=== PATIENT | female | born 1935 | race Caucasian/White ===

== ENCOUNTER 2019-02-05 12:57 | Inpatient (IN) ==
[2019-02-05 14:17] LABS: Basophils % 0.6 %; Eosinophils # 0.1 K/mcL (0.0-0.6); Eosinophils % 1.1 %; Hematocrit 35.6 % (35.3-44.9); Hemoglobin 11.9 g/dL (11.5-15.4); Immature Granulocytes % 0.2 % (0-4); Lymphocytes # 0.7 K/mcL (0.6-4.6); Lymphocytes % 13.4 %; Mean Corpuscular HGB Conc 33.4 g/dL (31.6-35.5); Mean Corpuscular Hemoglobin 29.8 pg (28.0-33.3); Mean Corpuscular Volume 89.2 fL (83.0-100.0); Mean Platelet Volume 9.8 fL (9.4-12.4); Monocytes # 0.5 K/mcL (0.0-1.3); Monocytes % 8.6 %; Neutrophils # 4.1 K/mcL (1.6-8.9); Platelet Count 176 K/mcL (140-400); Red Blood Count 3.99 M/mcL (3.82-4.97); Red Cell Distribution Width 13.5 % (11.5-14.5); Segmented Neutrophils % 76.1 %; White Blood Count 5.4 K/mcL (4.3-11.1)
[2019-02-05 14:31] LABS: Bilirubin,Urine Negative (Negative); Blood,Urine Negative (Negative); Clarity,Urine Clear (Clear); Color,Urine Yellow (Yellow); Glucose,Urine (UA) Normal (Normal); Ketones,Urine Negative (Negative); Leukocyte Esterase,Urine Negative (Negative); Nitrite,Urine Negative (Negative); PH,Urine 7.5 pH Units (5.0-8.0); Protein,Urine Negative (Neg-Trace); Specific Gravity,Urine 1.016 (1.010-1.025); Urobilinogen,Urine Normal (Normal)
[2019-02-05 14:39] LABS: BUN/Creatinine Ratio 19 (6-26); Blood Urea Nitrogen 15 mg/dL (8-23); Calcium 9.1 mg/dL (8.6-10.3); Carbon Dioxide 30 mEq/L (23-29); Chloride 102 mEq/L (98-107); Glucose 104 mg/dL (70-105); Osmolality,Calculated 287 (280-300); Potassium 4.1 mEq/L (3.5-5.1); Sodium 138 mEq/L (136-145); eGFR For African Americans > 60 (> 60); eGFR For Non-African Americans > 60 (> 60)
[2019-02-05] MEDS ORDERED: Naloxone 0.4 MG/ML INJ IVP PRN (17:33)
[2019-02-05] MEDS ORDERED: cloNIDine HCl 0.1 MG TABLET ONE (18:51)
[2019-02-05] MEDS: 0.9 % Sodium Chloride 1,000 ML IVC SCH (18:55)
[2019-02-05] MEDS: cloNIDine HCl 0.1 MG TABLET PO SCH (18:59)
[2019-02-05] MEDS ORDERED: *HR* OxyCODONE/APAP 5/325 TABLET PO ONE (21:30)
[2019-02-05] MEDS: *HR* Heparin 5,000 UNIT/ML VIAL SQ SCH (21:53)
[2019-02-06] MEDS: Acetaminophen 325 MG TABLET PO PRN (04:56)
[2019-02-06] MEDS: *HR* Heparin 5,000 UNIT/ML VIAL SQ SCH ×3 (04:57→20:05)
[2019-02-06 07:31] LABS: Basophils % 0.6 %; Eosinophils # 0.1 K/mcL (0.0-0.6); Eosinophils % 1.1 %; Hematocrit 31.7 % (35.3-44.9); Hemoglobin 10.6 g/dL (11.5-15.4); Immature Granulocytes % 0.2 % (0-4); Lymphocytes # 0.6 K/mcL (0.6-4.6); Lymphocytes % 13.2 %; Mean Corpuscular HGB Conc 33.4 g/dL (31.6-35.5); Mean Corpuscular Hemoglobin 30.2 pg (28.0-33.3); Mean Corpuscular Volume 90.3 fL (83.0-100.0); Mean Platelet Volume 10.5 fL (9.4-12.4); Monocytes # 0.5 K/mcL (0.0-1.3); Monocytes % 10.9 %; Neutrophils # 3.5 K/mcL (1.6-8.9); Platelet Count 170 K/mcL (140-400); Red Blood Count 3.51 M/mcL (3.82-4.97); Red Cell Distribution Width 13.7 % (11.5-14.5); White Blood Count 4.7 K/mcL (4.3-11.1)
[2019-02-06 07:57] LABS: BUN/Creatinine Ratio 19 (6-26); Blood Urea Nitrogen 15 mg/dL (8-23); Calcium 8.6 mg/dL (8.6-10.3); Carbon Dioxide 27 mEq/L (23-29); Chloride 102 mEq/L (98-107); Glucose 113 mg/dL (70-105); Osmolality,Calculated 288 (280-300); Sodium 138 mEq/L (136-145); eGFR For African Americans > 60 (> 60); eGFR For Non-African Americans > 60 (> 60)
[2019-02-06] MEDS: cloNIDine HCl 0.1 MG TABLET PO SCH ×2 (08:56→20:05)
[2019-02-06] MEDS: Aspirin Enteric Coated 81 MG Tablet PO SCH (08:57)
[2019-02-06] MEDS: Cyanocobalamin (B-12) 1,000 MCG TABLET PO SCH (08:57)
[2019-02-06] MEDS: Ascorbic Acid 500 MG TABLET PO SCH (08:57)
[2019-02-06] MEDS ORDERED: NON-FORMULARY MEDICATION 1 EACH EACH (Omega-3/Dha/Epa/Fish Oil [Omega 3 500 Softgel] 1 EAC PO SCH (09:00)
[2019-02-06] MEDS ORDERED: D MANNOSE 500 MG PO SCH (09:00)
[2019-02-06] MEDS: 0.9 % Sodium Chloride 1,000 ML IVC SCH (11:25)
[2019-02-06] MEDS: *HR* LORazepam 0.5 MG TABLET PO PRN (22:14)
[2019-02-07 05:22] LABS: Basophils % 0.4 %; Eosinophils % 0.8 %; Hematocrit 32.7 % (35.3-44.9); Hemoglobin 10.8 g/dL (11.5-15.4); Immature Granulocytes % 0.4 % (0-4); Lymphocytes # 0.6 K/mcL (0.6-4.6); Lymphocytes % 11.4 %; Mean Corpuscular Hemoglobin 30.1 pg (28.0-33.3); Mean Corpuscular Volume 91.1 fL (83.0-100.0); Mean Platelet Volume 10.4 fL (9.4-12.4); Monocytes # 0.5 K/mcL (0.0-1.3); Monocytes % 10.6 %; Neutrophils # 3.9 K/mcL (1.6-8.9); Platelet Count 185 K/mcL (140-400); Red Blood Count 3.59 M/mcL (3.82-4.97); Red Cell Distribution Width 13.5 % (11.5-14.5); Segmented Neutrophils % 76.4 %; White Blood Count 5.1 K/mcL (4.3-11.1)
[2019-02-07 05:34] LABS: BUN/Creatinine Ratio 18 (6-26); Blood Urea Nitrogen 15 mg/dL (8-23); Calcium 8.6 mg/dL (8.6-10.3); Carbon Dioxide 25 mEq/L (23-29); Chloride 104 mEq/L (98-107); Glucose 134 mg/dL (70-105); Osmolality,Calculated 285 (280-300); Potassium 3.8 mEq/L (3.5-5.1); Sodium 136 mEq/L (136-145); eGFR For African Americans > 60 (> 60); eGFR For Non-African Americans > 60 (> 60)
[2019-02-07] MEDS: *HR* Heparin 5,000 UNIT/ML VIAL SQ SCH ×3 (06:21→19:48)
[2019-02-07] MEDS: cloNIDine HCl 0.1 MG TABLET PO SCH (09:30)
[2019-02-07] MEDS: Cyanocobalamin (B-12) 1,000 MCG TABLET PO SCH (09:30)
[2019-02-07] MEDS: Aspirin Enteric Coated 81 MG Tablet PO SCH (09:30)
[2019-02-07] MEDS: Ascorbic Acid 500 MG TABLET PO SCH (09:30)
[2019-02-07] MEDS: *HR* LORazepam 0.5 MG TABLET PO PRN (09:34)
[2019-02-07 11:22] LABS: Adenovirus Not Detected (Not Detect); Bordetella Pertussis Not Detected (Not Detect); Chlamydophila pneumoniae Not Detected (Not Detect); Coronavirus 229E Not Detected (Not Detect); Coronavirus HKU1 Not Detected (Not Detect); Coronavirus NL63 Not Detected (Not Detect); Coronavirus OC43 Not Detected (Not Detect); Human Metapneumovirus Not Detected (Not Detect); Human Rhinovirus/Enterovirus Not Detected (Not Detect); Influenza A Subtype 2009 H1 Not Detected (Not Detect); Influenza A Untypeable Not Detected (Not Detect); Influenza B Not Detected (Not Detect); Mycoplasma pneumoniae Not Detected (Not Detect); Parainfluenza Virus 1 Not Detected (Not Detect); Parainfluenza Virus 2 Not Detected (Not Detect); Parainfluenza Virus 3 Not Detected (Not Detect); Parainfluenza Virus 4 Not Detected (Not Detect); Respiratory Syncytial Virus Not Detected (Not Detect)
[2019-02-07] MEDS ORDERED: Ibuprofen 400 MG TABLET PO SCH (11:54)
[2019-02-07] MEDS: Ibuprofen 400 MG TABLET PO SCH (15:44)
[2019-02-07] MEDS: Ondansetron 4 MG/2 ML VIAL IVP PRN (16:29)
[2019-02-08] MEDS: Ibuprofen 400 MG TABLET PO SCH ×2 (00:20→00:27)
[2019-02-08 04:33] LABS: Basophils % 0.4 %; Eosinophils # 0.1 K/mcL (0.0-0.6); Eosinophils % 1.5 %; Hematocrit 32.5 % (35.3-44.9); Hemoglobin 10.4 g/dL (11.5-15.4); Immature Granulocytes % 0.4 % (0-4); Lymphocytes # 0.7 K/mcL (0.6-4.6); Lymphocytes % 13.7 %; Mean Corpuscular Volume 93.7 fL (83.0-100.0); Mean Platelet Volume 10.4 fL (9.4-12.4); Monocytes # 0.6 K/mcL (0.0-1.3); Monocytes % 10.6 %; Neutrophils # 3.8 K/mcL (1.6-8.9); Platelet Count 197 K/mcL (140-400); Red Blood Count 3.47 M/mcL (3.82-4.97); Red Cell Distribution Width 13.9 % (11.5-14.5); Segmented Neutrophils % 73.4 %; White Blood Count 5.2 K/mcL (4.3-11.1)
[2019-02-08 04:50] LABS: Potassium 3.9 mEq/L (3.5-5.1); Uric Acid 4.1 mg/dL (2.3-7.6)
[2019-02-08] MEDS: *HR* Heparin 5,000 UNIT/ML VIAL SQ SCH ×3 (05:56→21:26)
[2019-02-08] MEDS ORDERED: predniSONE 20 MG TABLET PO SCH (09:00)
[2019-02-08] MEDS: Aspirin Enteric Coated 81 MG Tablet PO SCH (09:14)
[2019-02-08] MEDS: Cyanocobalamin (B-12) 1,000 MCG TABLET PO SCH (09:14)
[2019-02-08] MEDS: Ascorbic Acid 500 MG TABLET PO SCH (09:14)
[2019-02-08] MEDS: Ondansetron 4 MG/2 ML VIAL IVP PRN (12:18)
[2019-02-08] MEDS ORDERED: MethylPREDNISolone Acet(DEPOT) 80 MG/ML VIAL INTRAART ONE (20:32)
[2019-02-08] MEDS: Acetaminophen 325 MG TABLET PO PRN (22:49)
[2019-02-09] MEDS: *HR* Heparin 5,000 UNIT/ML VIAL SQ SCH ×3 (05:27→21:06)
[2019-02-09] MEDS ORDERED: MethylPREDNISolone Acet(DEPOT) 80 MG/ML VIAL INTRAART ONE (06:00)
[2019-02-09] MEDS ORDERED: Dexamethasone 4 MG/ML VIAL INTRAART ONE (06:00)
[2019-02-09 07:07] LABS: Calcium 8.8 mg/dL (8.6-10.3)
[2019-02-09] MEDS: Aspirin Enteric Coated 81 MG Tablet PO SCH (09:22)
[2019-02-09] MEDS: Ascorbic Acid 500 MG TABLET PO SCH (09:22)
[2019-02-09] MEDS: Cyanocobalamin (B-12) 1,000 MCG TABLET PO SCH (09:23)
[2019-02-09] MEDS ORDERED: Lactulose Oral Soln 20 GM/30 ML UDC PO ONE (11:51)
[2019-02-09] MEDS ORDERED: Haloperidol Lactate 5 MG/ML VIAL IVP ONE (18:47)
[2019-02-10] MEDS: *HR* Heparin 5,000 UNIT/ML VIAL SQ SCH ×3 (06:43→20:47)
[2019-02-10] MEDS: Ondansetron 4 MG/2 ML VIAL IVP PRN (09:59)
[2019-02-10] MEDS: Cyanocobalamin (B-12) 1,000 MCG TABLET PO SCH (10:05)
[2019-02-10] MEDS: Aspirin Enteric Coated 81 MG Tablet PO SCH (10:05)
[2019-02-10] MEDS: Ascorbic Acid 500 MG TABLET PO SCH (10:05)
[2019-02-10] MEDS: Acetaminophen 325 MG TABLET PO PRN (17:09)
[2019-02-10] MEDS ORDERED: Haloperidol Lactate 5 MG/ML VIAL IVP ONE (19:01)
[2019-02-10] MEDS ORDERED: Artificial Tears SOLN 15 ML BOTTLE BOTH EYES PRN (20:58)
[2019-02-11] MEDS: *HR* Heparin 5,000 UNIT/ML VIAL SQ SCH ×3 (05:56→20:55)
[2019-02-11] MEDS: Ascorbic Acid 500 MG TABLET PO SCH (09:49)
[2019-02-11] MEDS: Cyanocobalamin (B-12) 1,000 MCG TABLET PO SCH (09:50)
[2019-02-11] MEDS: Aspirin Enteric Coated 81 MG Tablet PO SCH (09:50)
[2019-02-11] MEDS ORDERED: HydrOXYzine 100 MG/2 ML VIAL IM ONE (18:42)
[2019-02-11] MEDS: Acetaminophen 325 MG TABLET PO PRN (18:45)
[2019-02-12] MEDS: *HR* Heparin 5,000 UNIT/ML VIAL SQ SCH ×2 (06:15→13:33)
[2019-02-12] MEDS: Cyanocobalamin (B-12) 1,000 MCG TABLET PO SCH (09:32)
[2019-02-12] MEDS: Aspirin Enteric Coated 81 MG Tablet PO SCH (09:32)
[2019-02-12] MEDS: Ascorbic Acid 500 MG TABLET PO SCH (09:33)
[2019-02-12 11:45] VITALS: BP 162/75
[2019-02-12] MEDS ORDERED: amLODIPine 5 MG TABLET PO SCH (12:57)
== END 2019-02-12 15:21 | DRG 149 ==
LOC: EMEROOARM 12:57 → 3BNU 12:57 → SUATTDRO 17:16 → 3BNU 18:24
PROVIDERS: ADMIT Student in an Organized Health Care Education/Training Program; ATTEND Internal Medicine

== ENCOUNTER 2019-10-10 13:48 | Inpatient (IN) ==
[2019-10-10 14:47] LABS: INR 1.1; Prothrombin Time 12.4 Seconds (9.4-12.1)
[2019-10-10 14:49] LABS: Activated Partial Thrombo Time 31.9 Seconds (26.0-36.0)
[2019-10-10] MEDS ORDERED: 0.9 % Sodium Chloride 1,000 ML IVC ONE (14:59)
[2019-10-10 15:05] LABS: BUN/Creatinine Ratio 19 (6-26); Basophils % 0.3 %; Blood Urea Nitrogen 18 mg/dL (8-23); Calcium 9.2 mg/dL (8.6-10.3); Carbon Dioxide 27 mEq/L (23-29); Chloride 104 mEq/L (98-107); Eosinophils # 0.1 K/mcL (0.0-0.6); Eosinophils % 2.1 %; Glucose 113 mg/dL (70-105); Hematocrit 42.1 % (35.3-44.9); Hemoglobin 13.5 g/dL (11.5-15.4); Immature Granulocytes % 0.5 % (0-4); Lymphocytes # 0.8 K/mcL (0.6-4.6); Lymphocytes % 13.1 %; Mean Corpuscular HGB Conc 32.1 g/dL (31.6-35.5); Mean Corpuscular Volume 96.8 fL (83.0-100.0); Mean Platelet Volume 10.7 fL (9.4-12.4); Monocytes # 0.4 K/mcL (0.0-1.3); Monocytes % 6.8 %; Neutrophils # 4.9 K/mcL (1.6-8.9); Osmolality,Calculated 289 (280-300); Platelet Count 211 K/mcL (140-400); Potassium 3.6 mEq/L (3.5-5.1); Red Blood Count 4.35 M/mcL (3.82-4.97); Red Cell Distribution Width 12.8 % (11.5-14.5); Segmented Neutrophils % 77.2 %; Sodium 138 mEq/L (136-145); Troponin I < 0.03 ng/mL (< 0.04); White Blood Count 6.3 K/mcL (4.3-11.1); eGFR For African Americans > 60 (> 60); eGFR For Non-African Americans 57 (> 60)
[2019-10-10 15:15] LABS: Thyroid Stimulating Hormone 5.056 mcIU/mL (0.340-5.600)
[2019-10-10 15:48] LABS: Bilirubin,Urine Negative (Negative); Blood,Urine Negative (Negative); Clarity,Urine Clear (Clear); Color,Urine Colorless (Yellow); Glucose,Urine (UA) Normal (Normal); Ketones,Urine Negative (Negative); Leukocyte Esterase,Urine Negative (Negative); Nitrite,Urine Negative (Negative); PH,Urine 5.5 pH Units (5.0-8.0); Protein,Urine Negative (Neg-Trace); Specific Gravity,Urine 1.005 (1.010-1.025); Urobilinogen,Urine Normal (Normal)
[2019-10-10] MEDS: DilTIAZem 50 MG/50 ML IV.SOLN IVC SCH (16:43)
[2019-10-10] MEDS ORDERED: cefTRIAXone 1,000 MG in Water for inj. (sterile) 10 ML IVP ONE (16:59)
[2019-10-10] MEDS ORDERED: Azithromycin 500 MG in 0.9 % Sodium Chloride 250 ML IVPB ONE (16:59)
[2019-10-10] MEDS ORDERED: *HR* Heparin 5,000 UNIT/ML VIAL IVP ONE (17:19)
[2019-10-10] MEDS ORDERED: *HR* Heparin 5,000 UNIT/ML VIAL IVP PRN ×2 (17:19)
[2019-10-10] MEDS ORDERED: Naloxone 0.4 MG/ML INJ IVP PRN (17:20)
[2019-10-10] MEDS ORDERED: Ondansetron ODT 4 MG TAB.RAPDIS SL PRN (17:20)
[2019-10-10] MEDS ORDERED: Perflutren Lipid Microsphere 1.3 ML in 0.9 % Sodium Chloride 8.7 ML IVP ONE (17:37)
[2019-10-10 18:26] LABS: Magnesium 1.8 mg/dL (1.6-2.6); Phosphorous 3.3 mg/dL (2.7-4.5)
[2019-10-10] MEDS: Melatonin 3 MG TABLET PO SCH (20:09)
[2019-10-10] MEDS: *HR* LORazepam 1 MG TABLET PO SCH (20:10)
[2019-10-10 20:13] LABS: Heparin anti-factor XA UFH < 0.04 IU/mL (0.30-0.70)
[2019-10-10 20:14] LABS: INR 1.1; Prothrombin Time 12.3 Seconds (9.4-12.1)
[2019-10-10 20:15] LABS: Hematocrit 41.1 % (35.3-44.9); Hemoglobin 13.1 g/dL (11.5-15.4); Mean Corpuscular HGB Conc 31.9 g/dL (31.6-35.5); Mean Corpuscular Hemoglobin 30.8 pg (28.0-33.3); Mean Corpuscular Volume 96.7 fL (83.0-100.0); Mean Platelet Volume 10.3 fL (9.4-12.4); Platelet Count 189 K/mcL (140-400); Red Blood Count 4.25 M/mcL (3.82-4.97); Red Cell Distribution Width 12.9 % (11.5-14.5)
[2019-10-10] MEDS: 0.9 % Sodium Chloride 1,000 ML IVC SCH (20:45)
[2019-10-10] MEDS: Heparin 25,000 UNIT/250 ML D5W 25,000 UNIT/250 ML IV.SOLN IVC SCH (20:48)
[2019-10-10] MEDS ORDERED: *HR* LORazepam 1 MG TABLET PO SCH (21:00)
[2019-10-11 02:12] LABS: Basophils % 0.6 %; Eosinophils # 0.2 K/mcL (0.0-0.6); Eosinophils % 3.2 %; Hematocrit 38.5 % (35.3-44.9); Hemoglobin 12.3 g/dL (11.5-15.4); Immature Granulocytes % 0.2 % (0-4); Lymphocytes # 0.8 K/mcL (0.6-4.6); Mean Corpuscular HGB Conc 31.9 g/dL (31.6-35.5); Mean Corpuscular Hemoglobin 30.8 pg (28.0-33.3); Mean Corpuscular Volume 96.5 fL (83.0-100.0); Mean Platelet Volume 10.6 fL (9.4-12.4); Monocytes # 0.4 K/mcL (0.0-1.3); Monocytes % 8.5 %; Neutrophils # 3.5 K/mcL (1.6-8.9); Platelet Count 178 K/mcL (140-400); Red Blood Count 3.99 M/mcL (3.82-4.97); Red Cell Distribution Width 12.7 % (11.5-14.5); Segmented Neutrophils % 70.5 %; White Blood Count 4.9 K/mcL (4.3-11.1)
[2019-10-11 02:17] LABS: BUN/Creatinine Ratio 24 (6-26); Blood Urea Nitrogen 17 mg/dL (8-23); Calcium 8.7 mg/dL (8.6-10.3); Carbon Dioxide 25 mEq/L (23-29); Chloride 108 mEq/L (98-107); Glucose 110 mg/dL (70-105); Osmolality,Calculated 292 (280-300); Potassium 3.6 mEq/L (3.5-5.1); Sodium 140 mEq/L (136-145); eGFR For African Americans > 60 (> 60); eGFR For Non-African Americans > 60 (> 60)
[2019-10-11] MEDS: DilTIAZem 50 MG/50 ML IV.SOLN IVC SCH ×3 (05:53→22:57)
[2019-10-11] MEDS ORDERED: Perflutren Lipid Microsphere 1.3 ML in 0.9 % Sodium Chloride 8.7 ML IVP ONE (08:19)
[2019-10-11] MEDS ORDERED: Metoprolol XL (24 HR) Succ 25 MG TAB.ER.24H PO SCH (09:00)
[2019-10-11] MEDS: Ascorbic Acid 500 MG TABLET PO SCH (09:42)
[2019-10-11] MEDS: Celecoxib 100 MG CAPSULE PO SCH (09:42)
[2019-10-11] MEDS: *HR* LORazepam 1 MG TABLET PO SCH ×2 (09:42→21:32)
[2019-10-11] MEDS: Aspirin Enteric Coated 81 MG Tablet PO SCH (09:42)
[2019-10-11] MEDS: Cyanocobalamin (B-12) 1,000 MCG TABLET PO SCH (09:43)
[2019-10-11] MEDS: 0.9 % Sodium Chloride 1,000 ML IVC SCH (09:44)
[2019-10-11] MEDS: allopurinoL 100 MG TABLET PO SCH (09:44)
[2019-10-11] MEDS: Loratadine 10 MG TABLET PO SCH (09:44)
[2019-10-11] MEDS ORDERED: Metoprolol XL (24 HR) Succ 25 MG TAB.ER.24H PO ONE (12:26)
[2019-10-11] MEDS: Acetaminophen 325 MG TABLET PO PRN (13:09)
[2019-10-11] MEDS: Heparin 25,000 UNIT/250 ML D5W 25,000 UNIT/250 ML IV.SOLN IVC SCH (15:08)
[2019-10-11] MEDS: Melatonin 3 MG TABLET PO SCH (21:31)
[2019-10-12 03:15] LABS: BUN/Creatinine Ratio 17 (6-26); Blood Urea Nitrogen 13 mg/dL (8-23); Calcium 8.6 mg/dL (8.6-10.3); Carbon Dioxide 24 mEq/L (23-29); Chloride 110 mEq/L (98-107); Glucose 111 mg/dL (70-105); Osmolality,Calculated 289 (280-300); Potassium 3.9 mEq/L (3.5-5.1); Sodium 139 mEq/L (136-145); eGFR For African Americans > 60 (> 60); eGFR For Non-African Americans > 60 (> 60)
[2019-10-12] MEDS ORDERED: Metoprolol XL (24 HR) Succ 25 MG TAB.ER.24H PO SCH ×2 (09:00→19:00)
[2019-10-12] MEDS ORDERED: Metoprolol XL (24 HR) Succ 50 MG TAB.ER.24H PO SCH (09:00)
[2019-10-12] MEDS: *HR* LORazepam 1 MG TABLET PO SCH ×2 (09:02→21:42)
[2019-10-12] MEDS: Cyanocobalamin (B-12) 1,000 MCG TABLET PO SCH (09:02)
[2019-10-12] MEDS: Celecoxib 100 MG CAPSULE PO SCH (09:02)
[2019-10-12] MEDS: Aspirin Enteric Coated 81 MG Tablet PO SCH (09:03)
[2019-10-12] MEDS: Loratadine 10 MG TABLET PO SCH (09:03)
[2019-10-12] MEDS: allopurinoL 100 MG TABLET PO SCH (09:03)
[2019-10-12] MEDS: Ascorbic Acid 500 MG TABLET PO SCH (09:03)
[2019-10-12] MEDS: DilTIAZem 50 MG/50 ML IV.SOLN IVC SCH (09:09)
[2019-10-12] MEDS: *HR* Heparin 5,000 UNIT/ML VIAL SQ SCH ×2 (15:08→21:44)
[2019-10-12] MEDS: Melatonin 3 MG TABLET PO SCH (21:42)
[2019-10-13] MEDS: *HR* Heparin 5,000 UNIT/ML VIAL SQ SCH ×3 (06:01→21:45)
[2019-10-13] MEDS: Ascorbic Acid 500 MG TABLET PO SCH (09:50)
[2019-10-13] MEDS: Celecoxib 100 MG CAPSULE PO SCH (09:50)
[2019-10-13] MEDS: *HR* LORazepam 1 MG TABLET PO SCH ×2 (09:50→15:17)
[2019-10-13] MEDS: Aspirin Enteric Coated 81 MG Tablet PO SCH (09:51)
[2019-10-13] MEDS: Cyanocobalamin (B-12) 1,000 MCG TABLET PO SCH (09:51)
[2019-10-13] MEDS: allopurinoL 100 MG TABLET PO SCH (09:51)
[2019-10-13] MEDS: Metoprolol XL (24 HR) Succ 50 MG TAB.ER.24H PO SCH ×2 (09:51→21:46)
[2019-10-13] MEDS: Loratadine 10 MG TABLET PO SCH (09:51)
[2019-10-13] MEDS: Acetaminophen 325 MG TABLET PO PRN (15:16)
[2019-10-13] MEDS: DilTIAZem 50 MG/50 ML IV.SOLN IVC SCH (18:29)
[2019-10-13] MEDS: Melatonin 3 MG TABLET PO SCH (21:45)
[2019-10-14] MEDS: DilTIAZem 50 MG/50 ML IV.SOLN IVC SCH ×2 (01:01→14:55)
[2019-10-14 04:41] LABS: Basophils % 0.9 %; Eosinophils # 0.2 K/mcL (0.0-0.6); Hematocrit 35.7 % (35.3-44.9); Hemoglobin 11.7 g/dL (11.5-15.4); Immature Granulocytes % 0.2 % (0-4); Lymphocytes % 21.8 %; Mean Corpuscular HGB Conc 32.8 g/dL (31.6-35.5); Mean Corpuscular Hemoglobin 31.5 pg (28.0-33.3); Mean Platelet Volume 10.4 fL (9.4-12.4); Monocytes # 0.4 K/mcL (0.0-1.3); Monocytes % 8.7 %; Neutrophils # 2.9 K/mcL (1.6-8.9); Platelet Count 166 K/mcL (140-400); Red Blood Count 3.72 M/mcL (3.82-4.97); Red Cell Distribution Width 12.8 % (11.5-14.5); Segmented Neutrophils % 63.4 %; White Blood Count 4.6 K/mcL (4.3-11.1)
[2019-10-14 05:02] LABS: BUN/Creatinine Ratio 15 (6-26); Blood Urea Nitrogen 14 mg/dL (8-23); Carbon Dioxide 26 mEq/L (23-29); Chloride 106 mEq/L (98-107); Glucose 115 mg/dL (70-105); Magnesium 1.8 mg/dL (1.6-2.6); Osmolality,Calculated 289 (280-300); Phosphorous 3.5 mg/dL (2.7-4.5); Potassium 3.5 mEq/L (3.5-5.1); Sodium 139 mEq/L (136-145); eGFR For African Americans > 60 (> 60); eGFR For Non-African Americans 57 (> 60)
[2019-10-14] MEDS: *HR* Heparin 5,000 UNIT/ML VIAL SQ SCH ×3 (06:36→19:54)
[2019-10-14] MEDS ORDERED: Perflutren Lipid Microsphere 1.3 ML in 0.9 % Sodium Chloride 8.7 ML IVP ONE (07:27)
[2019-10-14] MEDS: *HR* LORazepam 1 MG TABLET PO SCH ×2 (07:43→14:55)
[2019-10-14] MEDS: Ascorbic Acid 500 MG TABLET PO SCH (07:43)
[2019-10-14] MEDS: Aspirin Enteric Coated 81 MG Tablet PO SCH (07:43)
[2019-10-14] MEDS: Cyanocobalamin (B-12) 1,000 MCG TABLET PO SCH (07:43)
[2019-10-14] MEDS: Celecoxib 100 MG CAPSULE PO SCH (07:43)
[2019-10-14] MEDS: Loratadine 10 MG TABLET PO SCH (07:43)
[2019-10-14] MEDS: Metoprolol XL (24 HR) Succ 50 MG TAB.ER.24H PO SCH ×2 (07:43→19:54)
[2019-10-14] MEDS: allopurinoL 100 MG TABLET PO SCH (07:43)
[2019-10-14] MEDS: Melatonin 3 MG TABLET PO SCH (19:54)
[2019-10-15] MEDS: DilTIAZem 50 MG/50 ML IV.SOLN IVC SCH (00:27)
[2019-10-15] MEDS: *HR* Heparin 5,000 UNIT/ML VIAL SQ SCH (05:45)
[2019-10-15] MEDS: allopurinoL 100 MG TABLET PO SCH (08:03)
[2019-10-15] MEDS: Aspirin Enteric Coated 81 MG Tablet PO SCH (08:03)
[2019-10-15] MEDS: Celecoxib 100 MG CAPSULE PO SCH (08:03)
[2019-10-15] MEDS: Loratadine 10 MG TABLET PO SCH (08:04)
[2019-10-15] MEDS: Cyanocobalamin (B-12) 1,000 MCG TABLET PO SCH (08:04)
[2019-10-15] MEDS: Ascorbic Acid 500 MG TABLET PO SCH (08:04)
[2019-10-15] MEDS: *HR* LORazepam 1 MG TABLET PO SCH (08:04)
[2019-10-15] MEDS: Metoprolol XL (24 HR) Succ 50 MG TAB.ER.24H PO SCH (08:05)
[2019-10-15 11:42] VITALS: BP 120/76
== END 2019-10-15 12:57 | disposition home or self-care (01) | DRG 309 ==
LOC: EDBD → EMEROOARM 13:48 → 2ANU 13:48 → SUATTDRO 16:44 → 2ANU 17:20
PROVIDERS: ADMIT Internal Medicine; ATTEND Family Medicine